=== PATIENT | female | born 1980 | race Two or more races ===

== ENCOUNTER 2022-12-14 20:59 | Inpatient (IN) | payer BC, MEDICAID ==
[~2022-12-14] VITALS: Ht 160 cm; Wt 76.8 kg
[2022-12-14 21:59] LABS: Urine Bacteria NONE SEEN /hpf (None Seen); Urine Blood 1+ /uL (Negative); Urine Clarity Clear (Clear); Urine Color Yellow (Yellow); Urine Hyaline Cast FEW /lpf (0 - 2); Urine Mucus FEW (None Seen); Urine Protein, UAD TRACE (Negative); Urine Specific Gravity 1.027 (1.001-1.035); Urine WBC 2 /hpf (0 - 5); Urine pH 6.5 (5.0-8.0)
[2022-12-14] MEDS ORDERED: HYDROmorphone HCL 2 MG/ML VL/or syr IV PRN (22:00)
[2022-12-14] MEDS ORDERED: ONDANSETRON HCL 4 MG/2 ML VIAL IV PRN (22:00)
[2022-12-14 22:01] LABS: Albumin 3.7 g/dL (3.4-5.0); Calcium 8.7 mg/dL (8.5-10.1); INR 1.08 (0.9-1.15); Partial Thromboplastin Time 30.1 SEC (24.5-34.5); Potassium 4.1 mmol/L (3.5-5.1); Prothrombin Time 11.3 sec (9.3-11.8)
[2022-12-14 22:04] LABS: BUN/Creatinine Ratio 18.7 (10.0-20.0); Bilirubin, Total 0.1 mg/dL (0.2-1.0); Total Protein 7.1 g/dL (6.4-8.2)
[2022-12-14 22:25] LABS: Eosinophils # (auto) 0.1 10 ^3/uL (0-0.8); Lymphocytes # (auto) 1.6 10 ^3/uL (0.4-5.4); Lymphocytes % (auto) 18.8 % (10.0-50.0); Monocytes # (auto) 0.6 10 ^3/uL (0-1.3)
[2022-12-14 22:26] LABS: Basophils # (auto) 0.1 10 ^3/uL (0-0.2); Basophils % (auto) 0.7 % (0.0-2.0); Hemoglobin 8.7 g/dL (12.2-16.2); Mean Corpuscular Hemoglobin 19.2 pg (28.0-32.0); Mean Corpuscular Hgb Conc. 29.9 g/dL (32.0-36.0); Monocytes % (auto) 7.1 % (0.0-12.0); Neutrophils # (auto) 6.1 10 ^3/uL (1.6-8.6); Neutrophils % (auto) 72.4 % (37.0-80.0); Red Blood Cells 4.54 10^6/uL (4.0-5.20); Red Cell Distribution Width 16.9 % (11.8-14.3); White Blood Cell 8.4 10^3/uL (4.4-10.8)
[2022-12-14 22:44] VITALS: BP 129/82; PULSE 69; RESP 18; TEMP 98; O2SAT 99
[2022-12-14] MEDS: SODIUM CHLORIDE 0.9% 1,000 ML IV SCH (23:23)
[2022-12-15] VITALS (9 sets, daily range): BP systolic 108–130; BP diastolic 54–84; PULSE 56–81; RESP 16–19; TEMP 97.7–98; O2SAT 96–99
[2022-12-15] MEDS: SODIUM CHLORIDE 0.9% 1,000 ML IV SCH (07:16)
[2022-12-15] MEDS ORDERED: LIDOCAINE W/ EPINEPHRINE 1% 20ML VIAL ONE (07:39)
[2022-12-15] MEDS ORDERED: VASOPRESSIN 20 UNIT/ML ONE (07:39)
[2022-12-15] MEDS ORDERED: BUPIVACAINE 0.25% INJ 50ML VIAL ONE (07:39)
[2022-12-15] MEDS ORDERED: ceFAZolin 2 GM/D5W100ml 100 ML IV ONE ×2 (10:00→13:00)
[2022-12-15] MEDS ORDERED: MEPERIDINE HCL (50 MG/ML) 1 ML VIAL ONE (13:28)
[2022-12-15] MEDS ORDERED: MIDAZOLAM HCL 2MG/2ML 2ml VIAL (1mg/ml) ONE (13:28)
[2022-12-15] MEDS ORDERED: fentaNYL CITRATE 100 MCG/2 ML VL ONE ×2 (13:28→14:13)
[2022-12-15] MEDS ORDERED: ONDANSETRON HCL 4 MG/2 ML VIAL ONE ×2 (13:30→14:26)
[2022-12-15] MEDS ORDERED: GLYCOPYRROLATE 0.2 MG/ML 1ML VIAL ONE ×2 (13:30→14:26)
[2022-12-15] MEDS ORDERED: SODIUM CHLORIDE LOCK 0 ML ONE (13:30)
[2022-12-15] MEDS ORDERED: ROCURONIUM 10MG/ML 10ML VIAL IV ONE ×2 (13:30→14:26)
[2022-12-15] MEDS ORDERED: DexAMETHasone SOD PHOS 10MG/1ML VIAL INJ ONE ×2 (13:30→14:26)
[2022-12-15] MEDS ORDERED: NEOSTIGMINE 1 MG/ML INJ (10mg/10ML VIAL) ONE (13:30)
[2022-12-15] MEDS ORDERED: PROPOFOL 10 MG/ML 20 ML IV ONE ×2 (13:30→14:26)
[2022-12-15] MEDS ORDERED: ceFAZolin 1GM/50ML 100 ML IV ONE (13:36)
[2022-12-15] MEDS ORDERED: BUPIVACAINE 0.5% P/F INJ 10 ML VIAL ONE (13:45)
[2022-12-15] MEDS ORDERED: EPINEPHrine HCL 1 MG/1 ML AMP ONE (13:49)
[2022-12-15] MEDS ORDERED: LIDOCAINE 2% JELLY 11ml (GLYDO) ONE (13:49)
[2022-12-15] MEDS ORDERED: CELECOXIB 100 MG CAP ONE (13:50)
[2022-12-15] MEDS ORDERED: GABAPENTIN 300 MG CAP ONE (13:51)
[2022-12-15] MEDS ORDERED: ACETAMINOPHEN IV 100 ML IV ONE (13:51)
[2022-12-15] MEDS ORDERED: SUGAMMADEX 200mg/2ml Vial (100MG/ML) IV ONE (13:58)
[2022-12-15] MEDS ORDERED: GABAPENTIN 300 MG CAP PO ONE (14:00)
[2022-12-15] MEDS ORDERED: ACETAMINOPHEN IV 1000 MG/100ML (10MG/ML) IV ONE (14:00)
[2022-12-15] MEDS ORDERED: CELECOXIB 100 MG CAP PO ONE (14:00)
[2022-12-15] MEDS ORDERED: SODIUM CHLORIDE LOCK 30 ML ONE (14:13)
[2022-12-15] MEDS ORDERED: SODIUM CHLORIDE LOCK 10 ML ONE (14:18)
[2022-12-15] MEDS ORDERED: ePHEDrine SULFATE 50 MG/ML AMP ONE (14:25)
[2022-12-15] MEDS ORDERED: LIDOCAINE 2% (LOCAL ANESTH.) PF 5ml SDV ONE (14:26)
[2022-12-15] MEDS ORDERED: KETOROLAC TROMETH 30 MG/ML 1ML VIAL ONE (14:26)
[2022-12-15] MEDS ORDERED: ONDANSETRON HCL 4 MG/2 ML VIAL IV PRN ×2 (15:45→16:00)
[2022-12-15] MEDS ORDERED: MORPHINE SULFATE INJ 2 MG/ml SYRG IV PRN (15:45)
[2022-12-15] MEDS ORDERED: ceFAZolin 1GM/50ML 50 ML IV ONE (15:45)
[2022-12-15] MEDS ORDERED: ACETAMINOPHEN 500 MG TAB PO PRN (15:45)
[2022-12-15] MEDS ORDERED: NITROGLYCERIN 0.4 MG SL TAB SL PRN (15:45)
[2022-12-15] MEDS ORDERED: SODIUM CHLORIDE 0.9% 1,000 ML IV SCH (15:45)
[2022-12-15] MEDS ORDERED: LABETALOL HCL 5 MG/ML 4ML SYRINGE IV PRN (16:00)
[2022-12-15] MEDS ORDERED: ePHEDrine SULFATE 50 MG/ML AMP IV PRN (16:00)
[2022-12-15] MEDS ORDERED: FLUMAZENIL 0.1 MG/ML INJ 10ML MDV IV PRN (16:00)
[2022-12-15] MEDS ORDERED: fentaNYL CITRATE 100 MCG/2 ML VL IV PRN (16:00)
[2022-12-15] MEDS ORDERED: hydrALAZINE HCL 20 MG/ML VL IV PRN (16:00)
[2022-12-15] MEDS ORDERED: NALOXONE HCL 0.4 MG/ML VIAL IV PRN (16:00)
[2022-12-15] MEDS ORDERED: HYDROmorphone HCL 2 MG/ML VL/or syr IV PRN (16:00)
[2022-12-15] MEDS: oxyCODONE HCL 5MG TAB PO PRN (16:17)
[2022-12-15] MEDS ORDERED: MEPERIDINE HCL (25 MG/ML) 1ML VIAL IM PRN (16:30)
[2022-12-15] MEDS: MORPHINE SULFATE 4 MG/ML SYR/VIAL IV PRN (20:46)
[2022-12-16] MEDS: oxyCODONE HCL 5MG TAB PO PRN ×2 (00:07→08:21)
[2022-12-16 05:00] VITALS: BP 108/56; PULSE 67; RESP 18; TEMP 98.1; O2SAT 95
[2022-12-16] MEDS: MORPHINE SULFATE 4 MG/ML SYR/VIAL IV PRN (05:00)
[2022-12-16 08:00] VITALS: BP 115/60; PULSE 83; RESP 20; TEMP 98.3; O2SAT 94
== END 2022-12-16 10:30 | disposition home or self-care (01) | DRG 743 ==
LOC: ER 20:59 → OVERFLOW 21:56 → LDRP 22:37 → CENTRAL 12-15 17:30
PROVIDERS: ADMIT Obstetrics & Gynecology; ATTEND Obstetrics & Gynecology
PROC: 0U9 Female Reproductive System, Drainage (ICD-10-PCS; 2022-12-15)
PROC: 0UB74ZZ Excision of Bilateral Fallopian Tubes, Percutaneous Endoscopic Approach (ICD-10-PCS; principal; 2022-12-15 13:58)
DX: N83.202 Unspecified ovarian cyst, left side (principal); D64.9 Anemia, unspecified; N83.201 Unspecified ovarian cyst, right side; K66.0 Peritoneal adhesions (postprocedural) (postinfection)
CPT/HCPCS: 36415; 71045; 76856; 80053; 81001; 83605; 84702; 85025; 85610; 85730; 86850; 86900; 86901; 86920; 93005; 94760; 96360; 96361; G0378; J0131; J0171; J0690; J1100; J1885; J2001; J2250; J2405; J2704; J3490